=== PATIENT | female | born 1945 | race Caucasian/White ===

== ENCOUNTER → 2020-06-14 12:54 | Outpatient (CLI) | payer MEDICARE, SELFPAY | PROVIDERS: PCP Nurse Practitioner Family; Referring Provider Nurse Practitioner Family; Visit Provider Nurse Practitioner Family | DX: M81.0 Age-related osteoporosis without current pathological fracture (principal); Z78.0 Asymptomatic menopausal state; Z87.891 Personal history of nicotine dependence | CPT/HCPCS: 77080 ==

== ENCOUNTER → 2021-02-23 08:41 | Outpatient (CLI) | payer MEDICARE, SELFPAY ==
--- NOTE | 2021-02-23 08:44 | DI.MRI.S_ITS ---
PROCEDURE: MR SHOULDER RT WO CON INDICATIONS: Pain in right shoulder TECHNIQUE: Noncontrast oblique coronal T2 fast spin echo with fat saturation, oblique sagittal T1 spin echo and T2 fast spin echo with fat saturation, axial T1 spin echo and T2 fast spin echo with fat saturation through the shoulder. COMPARISON: None. FINDINGS: Image quality: Excellent. Rotator cuff: Tendinopathy with full-thickness tear of the supraspinatus, measuring approximately 9 mm (series 8, image 9). Infraspinatus tendinopathy with small interstitial and bursal surface tears. Subscapularis tendinopathy with interstitial and small partial articular surface tears. The teres minor tendon is unremarkable. Sagittal images demonstrate grade 1/2 supraspinatus muscle atrophy. Bones and bursae: No distinct fracture line. Small foci of subchondral edema. Mild degenerative change of the AC joint with T2 hyperintense signal within the articulation. The acromion demonstrates conventional anatomy, without an os acromiale. Subacromial/subdeltoid fluid, which may be related to the patient's joint effusion/rotator cuff tear. Capsule and soft tissues: A Linear signal in the posterior labrum, compatible labral tear. The long head of the biceps tendon demonstrates normal location and morphology. The rotator interval appears normal, without fibrosis. The cortical clavicular ligament is intact. IMPRESSION: 1. Supraspinatus tendinopathy with full-thickness tear as detailed above. 2. Infraspinatus tendinopathy with small interstitial and bursal surface tears. 3. Subscapularis tendinopathy with interstitial and small ball partial articular surface tears. 4. Posterior labral tear. 5. Subacromial/subdeltoid fluid, likely related to the patient's joint effusion/rotator cuff tear. Dictated by: Winston Hollingsworth M.D. on 02/23/2021 at 10:14 Approved by: Winston Hollingsworth M.D. on 02/23/2021 at 10:27
== END ==
PROVIDERS: PCP Nurse Practitioner Family; Referring Provider Nurse Practitioner Family; Visit Provider Nurse Practitioner Family
DX: M75.121 Complete rotator cuff tear or rupture of right shoulder, not specified as traumatic (principal); S43.491A Other sprain of right shoulder joint, initial encounter; M25.511 Pain in right shoulder
CPT/HCPCS: 73221

== ENCOUNTER → 2022-03-14 09:31 | Outpatient (CLI) | payer MEDICARE, SELFPAY ==
--- NOTE | 2022-03-14 09:35 | DI.MG.S_ITS ---
BILATERAL DIGITAL SCREENING MAMMOGRAM 3D/2D WITH CAD WITH AUGMENTATION: 03/14/2022 CLINICAL: Routine screening. Comparison is made to exam dated: 07/01/2018 mammogram - out side. There are scattered areas of fibroglandular density in both breasts (category b / 25%-50% glandular tissue). Current study was also evaluated with a Computer Aided Detection (CAD) system. Bilateral breast implants are present. No significant masses, calcifications, or other findings are seen in either breast. There has been no significant interval change. IMPRESSION: BENIGN There is no mammographic evidence of malignancy. A 1 year screening mammogram is recommended. Based on the Tyrer Cuzick model (a risk assessment model) the patient's lifetime risk is 1.9% and her 10 year risk is 0.0%. According to the ACR, ACS, and NCCN guidelines, an annual breast MRI exam along with mammogram is recommended if the patient's lifetime risk is 20% or greater. This exam was interpreted at Station ID: [id number]. NOTE: For mammograms, a report in lay terms will be sent to the patient. Approximately 15% of breast malignancies will not be visualized mammographically. In the management of a palpable breast mass, a negative mammogram must not discourage biopsy of a clinically suspicious lesion. Electronically Signed By: Geovanny [email or web address]:03/14/2022 14:44:50 letter sent: Normal Exam ACR BI-RADS Category 2: Benign Finding(s) 3342F
== END ==
PROVIDERS: PCP Nurse Practitioner Family; Referring Provider Nurse Practitioner Family; Visit Provider Nurse Practitioner Family
DX: Z12.31 Encounter for screening mammogram for malignant neoplasm of breast; M85.852 Other specified disorders of bone density and structure, left thigh; Z78.0 Asymptomatic menopausal state
CPT/HCPCS: 77063; 77067; 77080